=== PATIENT | female | born 2000 | race Two or more races ===

== ENCOUNTER 2025-01-23 09:55 | Outpatient (CLI) | payer OTHER | END 2025-01-23 10:01 | disposition home or self-care (01) | LOC: PRENATAL 09:55 | PROVIDERS: ATTEND Obstetrics & Gynecology Maternal & Fetal Medicine | DX: O44.00 Complete placenta previa NOS or without hemorrhage, unspecified trimester (principal); Z3A.20 20 weeks gestation of pregnancy ==

== ENCOUNTER 2025-04-15 15:24 | Outpatient (CLI) | payer OTHER | END 2025-04-15 15:25 | disposition home or self-care (01) | LOC: PRENATAL 15:24 | PROVIDERS: ATTEND Obstetrics & Gynecology Maternal & Fetal Medicine | DX: O26.849 Uterine size-date discrepancy, unspecified trimester (principal); O36.8199 Decreased fetal movements, unspecified trimester, other fetus; Z3A.32 32 weeks gestation of pregnancy ==

== ENCOUNTER 2025-05-17 14:19 | Outpatient (CLI) | payer OTHER | END 2025-05-17 14:21 | disposition home or self-care (01) | LOC: PRENATAL 14:19 | PROVIDERS: ATTEND Obstetrics & Gynecology Maternal & Fetal Medicine | DX: O26.849 Uterine size-date discrepancy, unspecified trimester (principal); O36.8130 Decreased fetal movements, third trimester, not applicable or unspecified; Z3A.35 35 weeks gestation of pregnancy ==

== ENCOUNTER 2025-05-27 16:03 | Inpatient (IN) | payer OTHER ==
[~2025-05-27] VITALS: Ht 165.1 cm; Wt 2.7 kg
[2025-05-27 14:55] VITALS: BP 110/70
[2025-05-27] MEDS ORDERED: AMPICILLIN SODIUM 2,000 MG VIAL IV STA (16:11)
[2025-05-27] MEDS ORDERED: PRENATA CHEWAB1 EACH PO (16:29)
[2025-05-27 16:30] LABS: BASO % 0.3 % (0.1-1.2); EOS # 0.11 (0.04-0.54); EOS % 0.8 % (0.7-7.0); LYMPH # 2.37 (1.18-3.74); LYMPH % 16.5 % (19.3-53.1); MEAN PLATELET VOLUME 11.60 fl (9.4-12.4); MONO # 1.52 (0.24-0.82); MONO % 10.6 % (4.7-12.5); NEUT # 10.16 (1.56-6.13); NEUT % 70.8 % (34.0-71.1); RED CELL DISTRIBUTION WIDTH 16.5 % (11.6-14.4)
[2025-05-27 16:31] LABS: URINE APPEARANCE Clear; URINE BACTERIA 1463.9 uL (0.0-1933); URINE BILIRRUBIN Negative (NEGATIVE); URINE BLOOD Negative; URINE COLOR Yellow; URINE EPITHELIAL CELLS 11.0 uL (0.0-38.8); URINE GLUCOSE Negative (NEGATIVE); URINE KETONE Negative (NEGATIVE); URINE LEUKOCYTE Trace; URINE NITRATE Negative; URINE PROTEIN Negative (NEGATIVE); URINE UROBILINOGEN 0.2 E.U./dl; URINE WBC 111.4 uL (0.0-23.2)
[2025-05-27] MEDS ORDERED: RINGERS SOLUTION,LACTATED 1,000 ML IV SCH (16:45)
[2025-05-27 16:50] LABS: INR < 0.93
[2025-05-27 16:53] LABS: URINE CAST 0.14 uL (0.0-1.40); URINE RBC 0.8 uL (0.0-20.8)
[2025-05-27 16:54] LABS: ALT/SGPT 19.0 U/L (12-78); AST/SGOT 17.0 U/L (15-37); BILIRUBIN TOTAL 0.22 mg/dL (0.3-1.2); BUN CREA RATIO 12.0 (7.0-25.0); CREATININE SERUM 0.52 mg/dL (0.55-1.02); GFR 147.46; GLOBULINA 3.9 G/DL (2.4-3.5); GLUCOSE FASTING 77.0 mg/dL (65-100); OSMOLALITY SERUM 280.0 MOSM/KG (275-295)
[2025-05-27] MEDS ORDERED: OXYTOCIN 500 ML IV SCH (18:30)
[2025-05-27] MEDS ORDERED: AMPICILLIN SODIUM 1,000 MG VIAL IV SCH (20:00)
[2025-05-27 20:16] VITALS: BP 133/62
[2025-05-27] MEDS ORDERED: PROMETHAZINE HCL 25 MG/ML AMPUL IM SCH (22:38)
[2025-05-27] MEDS ORDERED: MORPHINE SULFATE 4 MG/ML CARTRIDGE IV PRN (22:45)
[2025-05-27] MEDS ORDERED: OXYTOCIN 1,000 ML IV SCH (22:45)
[2025-05-27] MEDS ORDERED: MORPHINE SULFATE 4 MG/ML VIAL IV ONE ×2 (23:25→23:55)
[2025-05-27] MEDS ORDERED: OXYTOCIN 10 UNITS/ML VIAL IV ONE (23:30)
[2025-05-27] MEDS ORDERED: ERYTHROMYCIN BASE OPHT 1GM EACH TUBE OP ONE (23:30)
[2025-05-28 03:01] VITALS: BP 109/68
[2025-05-28 08:05] VITALS: BP 111/63
[2025-05-28] MEDS ORDERED: OxyCODONE HCL 5 MG TABLET (ROXICODONE) PO PRN (08:30)
[2025-05-28 13:00] VITALS: BP 107/64
[2025-05-28 16:03] VITALS: BP 106/70
[2025-05-28 20:50] VITALS: BP 97/62
[2025-05-29 01:11] VITALS: BP 100/58
[2025-05-29 08:12] VITALS: BP 92/59
[2025-05-29] MEDS ORDERED: DIPHENHYDRAMINE HCL 25 MG CAPSULE PO NR (11:00)
[2025-05-30 01:21] VITALS: BP 98/64
[2025-05-30 04:00] VITALS: BP 99/66
[2025-05-30 09:15] VITALS: BP 100/62
[2025-05-30 16:26] VITALS: BP 112/71
[2025-05-31] VITALS: BP 97/63
[2025-05-31 08:35] VITALS: BP 104/66
[2025-05-31 16:38] VITALS: BP 115/74
== END 2025-05-31 17:21 | disposition home or self-care (01) | DRG 788 ==
LOC: LDR 16:03 → OB/GYN 16:03 → O/R 21:47 → OB/GYN 23:57
PROVIDERS: ADMIT Obstetrics & Gynecology Obstetrics; ATTEND Obstetrics & Gynecology Obstetrics
PROC: 4A1HXCZ Monitoring of Products of Conception, Cardiac Rate, External Approach (ICD-10-PCS; 2025-05-27)
PROC: 10D00Z1 Extraction of Products of Conception, Low, Open Approach (ICD-10-PCS; principal; 2025-05-28)
DX: O82 Encounter for cesarean delivery without indication (principal); O62.0 Primary inadequate contractions; Z3A.38 38 weeks gestation of pregnancy; Z37.0 Single live birth